=== PATIENT | male | born 1935 | race Caucasian/White ===

== ENCOUNTER 2018-03-01 07:11 | Inpatient (IN) | payer MEDICARE, BC ==
[~2018-03-01] VITALS: Ht 193 cm; Wt 135.7 kg
[2018-03-01] VITALS (216 sets, daily range): BP systolic 106–145; BP diastolic 51–91; PULSE 69–91; TEMP 98.6–99.1; O2SAT 77–100
[~2018-03-01 07:11] MED LIST: ASPRIN; CARDI-OMEGA1000 MG PO; CENTRUM SILVER1 CTB PO; CETIRIZINE10 MG PO; CRESTOR40 MG PO; FEXOFENADINE180 MG PO; FLOMAX0.4 MG PO; LEVOTHROID0.137 MG PO; NORCO 325 MG-51 TAB PO; TOPCARE PAIN R325 MG PO; TOPROL XL50 MG PO; TYLENOL 500MG500 MG PO; VALTREX 50500 MG/TAB PO; ZETIA 10MG TAB10 MG PO
[2018-03-01 07:30] LABS: BASO % 0.2 % (0.0-2.0); GRAN # 10.9 (1.4-6.5); GRAN % 87.5 % (42.2-75.2); HEMATOCRIT 44.2 % (42.0-52.0); HEMOGLOBIN 15.1 g/dl (13.5-18.0); LYMPH # 0.7 (1.2-3.4); LYMPH % 5.2 % (20.0-51.0); MEAN CELL VOLUME 95 fl (80.0-100.0); MEAN CORPUSCULAR HEMOGLOBIN 32 pg (27.0-31.0); MEAN CORPUSCULAR HGB CONC 34 g/dl (33.0-37.0); MEAN PLATELET VOLUME 9.7 fl (7.4-10.4); MONO # 0.8 (0.1-0.6); MONO % 6.5 % (1.7-9.3); PLATELET COUNT 122 K/mm3 (130-400); RED BLOOD COUNT 4.67 M/mm3 (4.20-5.60); REDCELL DISTRIBUTION WIDTH-CV 12.8 % (11.5-14.5)
[2018-03-01 07:41] LABS: ALANINE AMINOTRANSFERASE 36 U/L (21-72); ALBUMIN 4.3 gm/dL (3.5-5.0); ALKALINE PHOSPHATASE 98 U/L (50-136); ANION GAP 15 mmol/L (7-16); AST,SGOT 34 U/L (15-37); BILIRUBIN,TOTAL 1.5 mg/dL (0.0-1.0); BLOOD UREA NITROGEN 26 mg/dL (9-20); C-REACTIVE PROTEIN 6.6 mg/dL (0.0-0.9); CALCIUM 9.6 mg/dL (8.4-10.2); CARBON DIOXIDE 21 mmol/L (22-30); CHLORIDE 100 mmol/L (98-107); CREATINE KINASE 109 U/L (55-170); CREATININE, serum 1.33 mg/dL (0.66-1.25); GLUCOSE 193 mg/dL (74-106); POTASSIUM 4.3 mmol/L (3.4-5.0); SODIUM 136 mmol/L (137-145); TOTAL PROTEIN 7.6 gm/dL (6.4-8.2)
[2018-03-01 07:50] LABS: TROPONIN-I < 0.012 ng/mL (0.000-0.034)
[2018-03-01 08:03] LABS: COLLECTION METHOD CATHETER
[2018-03-01 08:30] LABS: GRANULAR CAST >12 /lpf; HYALINE CAST >12 /lpf; MUCOUS Present /lpf; PH 5 (5-8); URINE APPEARANCE Hazy; URINE BACTERIA None Seen /hpf; URINE BILIRUBIN Negative (NEGATIVE); URINE BLOOD 2+ (NEGATIVE); URINE COLOR Amber; URINE GLUCOSE Negative (NEGATIVE); URINE KETONE Negative (NEGATIVE); URINE LEUKOCYTE ESTERASE Negative (NEGATIVE); URINE NITRATE Negative (NEGATIVE); URINE PROTEIN(semi-quant) 3+ (NEGATIVE); URINE UROBILINOGEN Negative (NEGATIVE)
[2018-03-01] MEDS ORDERED: TYLENOL 8 HR PO (10:23)
[2018-03-01] MEDS ORDERED: ASPIRIN E.C. 8181 MG PO (10:24)
[2018-03-01] MEDS ORDERED: CRESTOR40 MG PO (10:26)
[2018-03-01] MEDS ORDERED: AMOXICILLIN 50500 MG PO (10:26)
[2018-03-01] MEDS ORDERED: B-121000 MCG PO (10:26)
[2018-03-01] MEDS ORDERED: EPA FISH OIL1 SGL PO (10:27)
[2018-03-01] MEDS ORDERED: SYNTHROID 0.10.15 MG PO (10:28)
[2018-03-01] MEDS ORDERED: TOPROL XL 50MG50 MG PO (10:28)
[2018-03-01] MEDS ORDERED: OMEGA-3 1000 MG1 CAP PO (10:28)
[2018-03-01] MEDS ORDERED: ZETIA 10MG TAB10 MG PO (10:29)
[2018-03-01] MEDS ORDERED: MICARDIS40 MG PO (10:30)
[2018-03-01] MEDS ORDERED: VALTREX1 GM PO (10:31)
[2018-03-01] MEDS ORDERED: ZYRTEC 10MG10 MG PO (10:32)
[2018-03-02] VITALS (212 sets, daily range): BP systolic 109–138; BP diastolic 44–71; PULSE 71–99; TEMP 97.8–98.8; O2SAT 74–100
[2018-03-02 05:05] LABS: MEAN CELL VOLUME 97 fl (80.0-100.0); MEAN CORPUSCULAR HGB CONC 33 g/dl (33.0-37.0); MEAN PLATELET VOLUME 9.5 fl (7.4-10.4); PLATELET COUNT 80 K/mm3 (130-400); RED BLOOD COUNT 3.78 M/mm3 (4.20-5.60); REDCELL DISTRIBUTION WIDTH-CV 13.1 % (11.5-14.5)
[2018-03-02 05:12] LABS: INR 1.2 (0.8-3.0); PROTHROMBIN TIME 13.4 SECONDS (9.7-12.8)
[2018-03-02 05:15] LABS: ALBUMIN 3.1 gm/dL (3.5-5.0); BILIRUBIN,TOTAL 0.8 mg/dL (0.0-1.0); CALCIUM 7.9 mg/dL (8.4-10.2); CREATININE, serum 1.07 mg/dL (0.66-1.25); POTASSIUM 4.1 mmol/L (3.4-5.0)
[2018-03-02 05:37] LABS: HEMATOCRIT 36.6 % (42.0-52.0); HEMOGLOBIN 12.2 g/dl (13.5-18.0); MEAN CORPUSCULAR HEMOGLOBIN 32 pg (27.0-31.0)
[2018-03-02 05:50] LABS: ARTERIAL BLD GAS O2 SATURATION 95.7 % (92-100); ARTERIAL BLD GAS TCO2 CT 24.8; ARTERIAL BLOOD GAS BASE EXCESS -1.5 (-2-2); ARTERIAL BLOOD GAS HCO3 23.5 meq/L (22-26); ARTERIAL BLOOD GAS PCO2 40.7 mmHg (35-45); ARTERIAL BLOOD GAS PO2 77.1 mmHg (80-100); ARTERIAL BLOOD GAS pH 7.38 (7.35-7.45)
[2018-03-02 05:59] LABS: BAND 23 % (0-10); LYMPHOCYTE 4 % (20.0-51.0); NEUTROPHILS 65 % (42.0-75.2); PLATELET ESTIMATE DECREASED (NORMAL)
[2018-03-03] VITALS (7 sets, daily range): BP systolic 120–147; BP diastolic 48–73; PULSE 89–98; TEMP 97.4–98.5
[2018-03-03 07:02] LABS: HEMOGLOBIN 11.7 g/dl (13.5-18.0); MEAN CELL VOLUME 98 fl (80.0-100.0); MEAN CORPUSCULAR HEMOGLOBIN 32 pg (27.0-31.0); MEAN CORPUSCULAR HGB CONC 33 g/dl (33.0-37.0); MEAN PLATELET VOLUME 9.9 fl (7.4-10.4); PLATELET COUNT 86 K/mm3 (130-400); RED BLOOD COUNT 3.69 M/mm3 (4.20-5.60)
[2018-03-03 07:11] LABS: ALBUMIN 2.9 gm/dL (3.5-5.0); BILIRUBIN,TOTAL 0.6 mg/dL (0.0-1.0); CREATININE, serum 0.88 mg/dL (0.66-1.25); POTASSIUM 4.4 mmol/L (3.4-5.0); TOTAL PROTEIN 5.7 gm/dL (6.4-8.2)
[2018-03-03 09:38] LABS: BAND 16 % (0-10); LYMPHOCYTE 9 % (20.0-51.0); NEUTROPHILS 72 % (42.0-75.2); NUCLEATED RED BLOOD CELL 1 (0-6)
[2018-03-03 09:39] LABS: PLATELET ESTIMATE DECREASED (NORMAL)
[2018-03-04 03:52] VITALS: BP 137/64; PULSE 94; TEMP 98.2
[2018-03-04 07:15] VITALS: BP 129/55; PULSE 86; TEMP 98.2
[2018-03-04 07:43] LABS: BASO # 0.1 (0.0-0.2); BASO % 0.5 % (0.0-2.0); EOS # 0.2 (0.0-0.7); EOS % 1.6 % (0-4.0); GRAN % 78.4 % (42.2-75.2); HEMOGLOBIN 11.8 g/dl (13.5-18.0); LYMPH % 9.1 % (20.0-51.0); MEAN CELL VOLUME 96 fl (80.0-100.0); MEAN CORPUSCULAR HEMOGLOBIN 32 pg (27.0-31.0); MEAN CORPUSCULAR HGB CONC 34 g/dl (33.0-37.0); MEAN PLATELET VOLUME 10.2 fl (7.4-10.4); MONO # 1.1 (0.1-0.6); MONO % 9.5 % (1.7-9.3); PLATELET COUNT 95 K/mm3 (130-400); RED BLOOD COUNT 3.67 M/mm3 (4.20-5.60); REDCELL DISTRIBUTION WIDTH-CV 13.2 % (11.5-14.5)
[2018-03-04 07:47] LABS: HEMATOCRIT 35.2 % (42.0-52.0)
[2018-03-04 07:50] LABS: ALBUMIN 2.9 gm/dL (3.5-5.0); BILIRUBIN,TOTAL 0.7 mg/dL (0.0-1.0); CALCIUM 8.4 mg/dL (8.4-10.2); CREATININE, serum 0.86 mg/dL (0.66-1.25); POTASSIUM 4.1 mmol/L (3.4-5.0); TOTAL PROTEIN 5.8 gm/dL (6.4-8.2)
[2018-03-04 11:11] LABS: BAND 34 % (0-10); EOSINOPHIL 1 % (0-4); LYMPHOCYTE 8 % (20.0-51.0); NEUTROPHILS 48 % (42.0-75.2)
[2018-03-04 11:12] LABS: PLATELET ESTIMATE DECREASED (NORMAL)
[2018-03-04 11:14] LABS: ANISOCYTOSIS 1+; POIKILOCYTOSIS 1+
[2018-03-04 11:22] VITALS: BP 127/61; PULSE 93; TEMP 97.9
[2018-03-04] MEDS ORDERED: TOPROL XL100 MG PO (14:11)
[2018-03-04] MEDS ORDERED: LEVAQUIN 5500 MG/TA1 PO (14:12)
[2018-03-04] MEDS ORDERED: BENADRYL ITCH28.3 G1 TP (14:48)
[2018-03-04] MEDS ORDERED: LEVAQUIN 750MG750 M1 PO (14:51)
== END 2018-03-04 16:40 | disposition home or self-care (01) | DRG 871 ==
LOC: COL.ER 07:11 → JCC 09:02 → ICU 09:02 → JCC 03-02 07:16
PROVIDERS: Emergency Medicine; Family Medicine
PROC: 02HV33Z Insertion of Infusion Device into Superior Vena Cava, Percutaneous Approach (ICD-10-PCS; principal; 2018-03-01)
DX: A41.59 Other Gram-negative sepsis (principal); J18.9 Pneumonia, unspecified organism; N17.9 Acute kidney failure, unspecified; I47.2 Ventricular tachycardia; Z66 Do not resuscitate; I10 Essential (primary) hypertension; I25.10 Atherosclerotic heart disease of native coronary artery without angina pectoris; Z95.5 Presence of coronary angioplasty implant and graft; Z85.46 Personal history of malignant neoplasm of prostate; Z87.891 Personal history of nicotine dependence; L27.0 Generalized skin eruption due to drugs and medicaments taken internally; T36.1X5A Adverse effect of cephalosporins and other beta-lactam antibiotics, initial encounter
CPT/HCPCS: OP; C1751; G0378; G8978-GP; G8979-GP; J0456; J0696; J1644; J1956; J7030; J7050

== ENCOUNTER → 2018-04-11 | Outpatient (CLI) | payer MEDICARE, BC ==
[~2018-04-11] MED LIST changes: +AMOXICILLIN 50500 MG PO; +ASPIRIN E.C. 8181 MG PO; +B-121000 MCG PO; +BENADRYL ITCH28.3 G1 TP; +EPA FISH OIL1 SGL PO; +LEVAQUIN 5500 MG/TA1 PO; +LEVAQUIN 750MG750 M1 PO; +MICARDIS40 MG PO; +OMEGA-3 1000 MG1 CAP PO; +SYNTHROID 0.10.15 MG PO; +TOPROL XL 50MG50 MG PO; +TOPROL XL100 MG PO; +TYLENOL 8 HR PO; +VALTREX1 GM PO; +ZYRTEC 10MG10 MG PO
[2018-04-11 15:38] LABS: BASO # 0.1 (0.0-0.2); BASO % 0.9 % (0.0-2.0); EOS # 0.1 (0.0-0.7); EOS % 1.7 % (0-4.0); GRAN # 3.1 (1.4-6.5); GRAN % 59.2 % (42.2-75.2); HEMATOCRIT 40.4 % (42.0-52.0); HEMOGLOBIN 13.2 g/dl (13.5-18.0); LYMPH # 1.5 (1.2-3.4); LYMPH % 27.9 % (20.0-51.0); MEAN CELL VOLUME 98 fl (80.0-100.0); MEAN CORPUSCULAR HEMOGLOBIN 32 pg (27.0-31.0); MEAN CORPUSCULAR HGB CONC 33 g/dl (33.0-37.0); MEAN PLATELET VOLUME 9.9 fl (7.4-10.4); MONO # 0.5 (0.1-0.6); MONO % 10.1 % (1.7-9.3); PLATELET COUNT 166 K/mm3 (130-400); RED BLOOD COUNT 4.14 M/mm3 (4.20-5.60); REDCELL DISTRIBUTION WIDTH-CV 13.3 % (11.5-14.5)
[2018-04-11 15:50] LABS: CALCIUM 9.1 mg/dL (8.4-10.2); CREATININE, serum 0.91 mg/dL (0.66-1.25); POTASSIUM 4.3 mmol/L (3.4-5.0)
[2018-04-11 16:04] LABS: ERYTHROCYTE SEDIMENTATION RATE 26 mm/hr (0-30)
== END ==
LOC: ZCOL.LAB 15:25
PROVIDERS: Internal Medicine
DX: R53.1 Weakness (principal)

== ENCOUNTER 2018-09-06 14:42 | Outpatient (RCR) | payer MEDICARE, BC ==
[~2018-09-06 14:42] MED LIST changes: +ALTACE 5MG5 MG PO; +BRILINTA90 MG PO
== END 2018-09-08 | disposition home or self-care (01) ==
LOC: COL.CR
DX: Z48.812 Encounter for surgical aftercare following surgery on the circulatory system (principal); Z95.5 Presence of coronary angioplasty implant and graft; I25.709 Atherosclerosis of coronary artery bypass graft(s), unspecified, with unspecified angina pectoris

== ENCOUNTER 2018-09-16 15:54 | Outpatient (RCR) | payer MEDICARE, BC | END 2018-12-08 | disposition home or self-care (01) | LOC: COL.CR | DX: Z02.89 Encounter for other administrative examinations (principal) ==

== ENCOUNTER 2021-01-12 00:40 | Emergency (ER) | payer MEDICARE, BC ==
[~2021-01-12] VITALS: Ht 190.5 cm; Wt 124.1 kg
[~2021-01-12 00:40] MED LIST changes: +ATROVENTNS0.03% NS; +MICARDIS HCT 121 TAB PO; +MURO 128 5% OPH15 ML OP; +PROVENTIL0.09 MG/A1 IH; +PULMICORT180 MCG/Ac IH; +REPATHA SU140 MG/1 M SQ; +SINGULAIR 110 MG/TAB PO; +TAMIFLU 75MG75 MG PO; +TOPROL XL 25MG25 MG PO
[2021-01-12 00:42] VITALS: TEMP 97.9
[2021-01-12 01:04] LABS: BASO % 0.4 % (0.0-2.0); EOS # 0.1 (0.0-0.7); EOS % 0.5 % (0-4.0); GRAN # 8.4 (1.4-6.5); HEMATOCRIT 39.8 % (42.0-52.0); HEMOGLOBIN 13.2 g/dl (13.5-18.0); LYMPH # 1.1 (1.2-3.4); LYMPH % 10.3 % (20.0-51.0); MEAN CELL VOLUME 98 fl (80.0-100.0); MEAN CORPUSCULAR HEMOGLOBIN 33 pg (27.0-31.0); MEAN CORPUSCULAR HGB CONC 33 g/dl (33.0-37.0); MONO # 0.7 (0.1-0.6); MONO % 6.4 % (1.7-9.3); PLATELET COUNT 165 K/mm3 (130-400); RED BLOOD COUNT 4.05 M/mm3 (4.20-5.60); REDCELL DISTRIBUTION WIDTH-CV 12.4 % (11.5-14.5)
[2021-01-12 01:15] LABS: ALANINE AMINOTRANSFERASE 23 U/L (4-49); ALBUMIN 4.1 gm/dL (3.5-5.0); ALKALINE PHOSPHATASE 85 U/L (50-136); ANION GAP 5 mmol/L (7-16); AST,SGOT 30 U/L (15-37); BILIRUBIN,TOTAL 0.7 mg/dL (0.0-1.0); BLOOD UREA NITROGEN 18 mg/dL (9-20); CALCIUM 9.4 mg/dL (8.4-10.2); CARBON DIOXIDE 28 mmol/L (22-30); CHLORIDE 103 mmol/L (98-107); CREATININE, serum 0.84 (0.66-1.25); GLUCOSE 133 mg/dL (74-106); LIPASE 41 U/L (23-300); POTASSIUM 5.2 mmol/L (3.4-5.0); SODIUM 136 mmol/L (137-145); TOTAL PROTEIN 7.1 gm/dL (6.4-8.2)
[2021-01-12 01:27] LABS: COLLECTION METHOD CLEAN CATCH
[2021-01-12 01:36] LABS: MUCOUS Present /lpf; PH 6 (5-8); SQUAMOUS EPITHELIAL 0-2 /hpf; URINE APPEARANCE Clear; URINE BACTERIA None Seen /hpf; URINE BILIRUBIN Negative (NEGATIVE); URINE BLOOD Negative (NEGATIVE); URINE COLOR Yellow; URINE GLUCOSE Negative (NEGATIVE); URINE KETONE Trace (NEGATIVE); URINE LEUKOCYTE ESTERASE Negative (NEGATIVE); URINE NITRATE Negative (NEGATIVE); URINE PROTEIN(semi-quant) Negative (NEGATIVE); URINE UROBILINOGEN Negative (NEGATIVE)
[2021-01-12 01:41] LABS: TROPONIN-I < 0.012 ng/mL (0.000-0.035)
[2021-01-12 03:04] VITALS: BP 157/64; PULSE 57
== END 2021-01-12 03:04 | disposition home or self-care (01) ==
LOC: COL.ER 00:40
PROVIDERS: Emergency Medicine
DX: R53.81 Other malaise (principal); R53.83 Other fatigue; R11.2 Nausea with vomiting, unspecified; I25.2 Old myocardial infarction; E66.01 Morbid (severe) obesity due to excess calories; I10 Essential (primary) hypertension; I25.10 Atherosclerotic heart disease of native coronary artery without angina pectoris; E03.9 Hypothyroidism, unspecified; J45.909 Unspecified asthma, uncomplicated; G47.33 Obstructive sleep apnea (adult) (pediatric); E78.01 Familial hypercholesterolemia; Z87.891 Personal history of nicotine dependence; Z20.822 Contact with and (suspected) exposure to COVID-19; Z99.89 Dependence on other enabling machines and devices; Z68.34 Body mass index [BMI] 34.0-34.9, adult; Z88.8 Allergy status to other drugs, medicaments and biological substances; Z79.82 Long term (current) use of aspirin; Z79.890 Hormone replacement therapy; Z79.51 Long term (current) use of inhaled steroids; Z79.899 Other long term (current) drug therapy
CPT/HCPCS: J2405

== ENCOUNTER 2022-09-29 15:53 | Emergency (ER) | payer MEDICARE, BC ==
[~2022-09-29] VITALS: Ht 193 cm; Wt 127.3 kg
[~2022-09-29 15:53] MED LIST changes: +EUTHYROX137 MCG PO; +FLOVENT 220MCG7.9 GM IH; +IPRATROPIUM BROM3 M1 IH; +MICARDIS80 MG PO; +MURO-128 30 ML30 ML OP; +NASONEX SPRAY17 GM NS; +NORVASC 10MG10 MG PO; +PREDNISONE20 MG PO; +PRESERVISION1 SGL PO; +TAMIFLU30 MG PO; +TYLENOL 325MG325 MG PO
[2022-09-29 16:00] VITALS: TEMP 97.8
[2022-09-29 16:55] LABS: BASO # 0.1 K/mm3 (0.0-0.2); BASO % 0.6 % (0.0-2.0); EOS # 0.1 K/mm3 (0.0-0.7); EOS % 1.3 % (0.0-4.0); GRAN # 5.6 K/mm3 (1.4-6.5); HEMATOCRIT 41.5 % (42.0-52.0); HEMOGLOBIN 13.4 g/dl (13.5-18.0); LYMPH # 1.5 K/mm3 (1.2-3.4); LYMPH % 18.1 % (20.0-51.0); MEAN CELL VOLUME 98 fl (80.0-100.0); MEAN CORPUSCULAR HEMOGLOBIN 32 pg (27-31); MEAN CORPUSCULAR HGB CONC 32 g/dl (33.0-37.0); MEAN PLATELET VOLUME 9.2 fl (7.4-10.4); MONO % 11.8 % (1.7-9.3); PLATELET COUNT 191 K/mm3 (130-400); RED BLOOD COUNT 4.23 M/mm3 (4.20-5.60); REDCELL DISTRIBUTION WIDTH-CV 13.3 % (11.5-14.5)
[2022-09-29 17:10] LABS: ALANINE AMINOTRANSFERASE 16 U/L (0-55); ALBUMIN 3.7 gm/dL (3.4-4.8); ALKALINE PHOSPHATASE 84 U/L (40-150); ANION GAP 11 mmol/L (7-16); AST,SGOT 15 U/L (5-34); BILIRUBIN,TOTAL 0.6 mg/dL (0.2-1.2); BLOOD UREA NITROGEN 24 mg/dL (8-26); CALCIUM 10.3 mg/dL (8.4-10.2); CARBON DIOXIDE 25 mmol/L (23-31); CHLORIDE 106 mmol/L (98-107); CREATININE, serum 1.05 mg/dL (0.72-1.25); GLUCOSE 111 mg/dL (70-99); POTASSIUM 4.4 mmol/L (3.5-4.5); SODIUM 142 mmol/L (136-145); TOTAL PROTEIN 7.2 gm/dL (6.2-8.1)
[2022-09-29 17:18] LABS: TROPONIN-I < 0.010 ng/mL (0.00-0.033)
[2022-09-29 18:15] LABS: COLLECTION METHOD CLEAN CATCH
[2022-09-29 18:31] LABS: URINE APPEARANCE Clear (CLEAR/HAZY); URINE BLOOD Negative (NEGATIVE); URINE COLOR Yellow (YELLOW); URINE GLUCOSE Negative (NEGATIVE); URINE KETONE Negative (NEGATIVE); URINE NITRATE Negative (NEGATIVE); URINE PROTEIN(semi-quant) Negative (NEGATIVE); URINE UROBILINOGEN 0.2 E.U/dL (0.2-1.0)
[2022-09-29 18:56] LABS: MUCOUS Present (NOT PRESENT); SQUAMOUS EPITHELIAL 0-2 /hpf (0-10); URINE BACTERIA None Seen /hpf (NONE SEEN); URINE RBC 0-2 /hpf (0-2)
[2022-09-29 18:58] VITALS: BP 162/88; PULSE 63
== END 2022-09-29 19:01 | disposition home or self-care (01) ==
LOC: COL.ER 15:53
PROVIDERS: Emergency Medicine Emergency Medical Services
DX: R42 Dizziness and giddiness (principal); R26.81 Unsteadiness on feet; I44.0 Atrioventricular block, first degree; Z20.822 Contact with and (suspected) exposure to COVID-19

== ENCOUNTER 2023-10-09 01:18 | Emergency (ER) | payer MEDICARE, BC ==
[~2023-10-09] VITALS: Ht 193 cm; Wt 128.2 kg
[~2023-10-09 01:18] MED LIST changes: +CORDARONE200 MG/TAB PO; +ELIQUIS 5MG PO; +MAG-OX 400400 MG/TAB PO; +PRILOSEC 20MG20 MG PO; +TRIAMCINOLONE A15 G3 TP; +VITAMIN B12 781 TAB PO; +[UNRECOGNIZED DRUG - OTHER] INH
[2023-10-09 01:21] VITALS: TEMP 98.2
[2023-10-09] MEDS ORDERED: Morphine 4 MG/ML VIAL IV ONE (01:45)
[2023-10-09] MEDS ORDERED: dexAMETHasone 10 MG/ML VIAL IV ONE (01:45)
[2023-10-09 01:46] LABS: BASO # 0.1 K/mm3 (0.0-0.2); BASO % 0.6 % (0.0-2.0); EOS # 0.2 K/mm3 (0.0-0.7); EOS % 2.3 % (0.0-4.0); GRAN # 6.6 K/mm3 (1.4-6.5); GRAN % 68.1 % (42.2-75.2); HEMOGLOBIN 10.2 g/dl (13.5-18.0); LYMPH # 1.6 K/mm3 (1.2-3.4); LYMPH % 16.8 % (20.0-51.0); MEAN CELL VOLUME 100 fl (80.0-100.0); MEAN CORPUSCULAR HEMOGLOBIN 33 pg (27-31); MEAN CORPUSCULAR HGB CONC 33 g/dl (33.0-37.0); MEAN PLATELET VOLUME 9.7 fl (7.4-10.4); MONO % 10.8 % (1.7-9.3); PLATELET COUNT 207 K/mm3 (130-400); RED BLOOD COUNT 3.09 M/mm3 (4.20-5.60)
[2023-10-09 01:53] LABS: HEMATOCRIT 30.8 % (42.0-52.0)
[2023-10-09 02:07] LABS: ALBUMIN 2.7 gm/dL (3.4-4.8); BILIRUBIN,TOTAL 0.3 mg/dL (0.2-1.2); C-REACTIVE PROTEIN 0.32 mg/dL (0.00-0.50); CALCIUM 8.8 mg/dL (8.4-10.2); CREATININE, serum 1.08 mg/dL (0.72-1.25); POTASSIUM 3.5 mmol/L (3.5-4.5); TOTAL PROTEIN 5.9 gm/dL (6.2-8.1); URIC ACID 4.7 mg/dL (3.5-7.2)
[2023-10-09] MEDS ORDERED: Ketorolac 15 MG/ML VIAL IV ONE (03:30)
[2023-10-09 03:50] VITALS: BP 126/63; PULSE 66
== END 2023-10-09 04:33 | disposition home or self-care (01) ==
LOC: COL.ER 01:18
PROVIDERS: Emergency Medicine
DX: M25.531 Pain in right wrist (principal); R07.9 Chest pain, unspecified; Z79.01 Long term (current) use of anticoagulants; Z79.899 Other long term (current) drug therapy
CPT/HCPCS: J1100; J1885; J2270

== ENCOUNTER → 2024-04-01 | Outpatient (CLI) | payer MEDICARE, BC ==
[~2024-04-01] MED LIST changes: +Albuterol 0.083% Neb Soln 2.5 MG/3 ML UD IH ONE
== END ==
LOC: COL.CARD 07:43
DX: Z79.01 Long term (current) use of anticoagulants (principal)